=== PATIENT | male | born 1975 | race Caucasian/White ===

== ENCOUNTER 2018-05-28 15:34 | Day surgery (SDC) | payer OTHER ==
[2018-05-28] MEDS ORDERED: CEFAZOLIN 2 GM/50 ML (PMX) 50 ML IVPB (16:51)
[2018-05-28] MEDS ORDERED: NEOSTIGMINE 3 MG/3 ML SYRINGE (16:56)
[2018-05-28] MEDS ORDERED: GLYCOPYRROLATE 0.4 MG INJ (16:56)
[2018-05-28] MEDS ORDERED: PROPOFOL 20 ML (16:56)
[2018-05-28] MEDS ORDERED: ROCURONIUM 50 MG INJ (16:56)
[2018-05-28] MEDS ORDERED: MIDAZOLAM 1 MG/ML 2 ML INJ (16:58)
[2018-05-28] MEDS ORDERED: FENTAnyl 50 MCG/ML VIAL ×2 (16:58→17:52)
[2018-05-28] MEDS ORDERED: ONDANSETRON 4 MG INJ (16:58)
[2018-05-28] MEDS ORDERED: DEXAMETHASONE 4 MG/ML 5 ML INJ (16:58)
[2018-05-28] MEDS ORDERED: MIDAZOLAM 1 MG/ML 2 ML INJ IV (17:30)
[2018-05-28] MEDS ORDERED: TRIMETHOBENZAMIDE 100 MG/ML VIAL IM (17:30)
[2018-05-28] MEDS ORDERED: EPHEDrine SULFATE 50 MG/5 ML SYG IV (17:30)
[2018-05-28] MEDS ORDERED: HYDROmorphONE 1 MG/5 ML IV SYRINGE IV ×2 (17:30)
[2018-05-28] MEDS ORDERED: LABETALOL HCL 20MG INJ IV (17:30)
[2018-05-28] MEDS ORDERED: DIPHENHYDRAMINE 50 MG INJ IV (17:30)
[2018-05-28] MEDS ORDERED: FENTAnyl 50 MCG/ML VIAL IV ×3 (17:30)
[2018-05-28] MEDS ORDERED: ALBUTEROL 0.083% (NEB) 2.5 MG/3 ML AMP HHN (17:30)
[2018-05-28] MEDS ORDERED: MEPERIDINE 25 MG INJ IV (17:30)
[2018-05-28] MEDS ORDERED: hydrALAzine 20 MG INJ IV (17:30)
[2018-05-28] MEDS ORDERED: OXYCODONE/ACETAMINOPHEN (5/325) TAB PO (17:30)
[2018-05-28] MEDS ORDERED: IPRATROPIUM (NEB) 0.5 MG/2.5 ML AMP HHN (17:30)
[2018-05-28] MEDS: POLYMYXIN/BACITRACIN 1L IRRIG IRR (17:39)
[2018-05-28] MEDS: BUPIVACAINE 0.5% (SDV) 30 ML INJ (17:39)
[2018-05-28] MEDS ORDERED: KETOROLAC 30 MG INJ (17:41)
[2018-05-28] MEDS: ONDANSETRON 4 MG INJ IV (19:26)
[2018-05-28] MEDS: HYDROmorphONE 1 MG/5 ML IV SYRINGE IV (19:26)
[2018-05-28] MEDS: OXYCODONE/ACETAMINOPHEN (5/325) TAB PO (19:27)
[2018-05-29] MEDS ORDERED: INFLUENZA VIRUS VACCINE 0.5 ML (DISPENSING) IM* (09:00)
== END 2018-05-28 20:10 | disposition home or self-care (01) ==
LOC: SDS 15:34
DX: S66.011D Strain of long flexor muscle, fascia and tendon of right thumb at wrist and hand level, subsequent encounter (principal); X58.XXXD Exposure to other specified factors, subsequent encounter; S62.521D Displaced fracture of distal phalanx of right thumb, subsequent encounter for fracture with routine healing; M67.431 Ganglion, right wrist
CPT/HCPCS: 25111; 73140; 90686